=== PATIENT | male | born 1975 | race African-American/Black ===

== ENCOUNTER 2017-05-30 11:58 | Emergency (ER) | payer MEDICAID ==
[~2017-05-30] VITALS: Ht 180.3 cm; Wt 103.4 kg
[2017-05-30] MEDS ORDERED: NKM (12:08)
[2017-05-30 13:29] LABS: BASOPHILS % (AUTO) 1.4 % (0.0-2.0); EOSINOPHILS % (AUTO) 0.7 % (0.0-3.0); LYMPHOCYTES % (AUTO) 27.7 % (20.0-45.0); MEAN CORPUSCULAR HEMOGLOBIN 31.1 PG (27.0-31.0); MEAN CORPUSCULAR HGB CONC 33.7 G/DL (32.0-36.0); MEAN CORPUSCULAR VOLUME 92 FL (80-99); MONOCYTES % (AUTO) 8.7 % (1.0-10.0); NEUTROPHILS % (AUTO) 61.5 % (45.0-75.0); PLATELET COUNT 302 K/UL (150-450); RED CELL DISTRIBUTION WIDTH 11.3 % (11.6-14.8); WHITE BLOOD COUNT 7.6 K/UL (4.8-10.8)
[2017-05-30 13:32] LABS: APPEARANCE,URINE CLEAR; KETONES,URINE 1+ (NEGATIVE); LEUKOCYTE ESTERASE ,URINE 1+ (NEGATIVE); NITRITE,URINE NEGATIVE (NEGATIVE); PH,URINE 6 (4.5-8.0); PROTEIN,URINE NEGATIVE (NEGATIVE); UROBILINOGEN,URINE NORMAL MG/DL (0.0-1.0)
[2017-05-30 13:52] LABS: BACTERIA,URINE OCCASIONAL /HPF; RBC,URINE 0-2 /HPF (0 - 0); SQUAMOUS EPITHELIAL CELL,UR OCCASIONAL /LPF (NONE/OCC)
[2017-05-30 13:53] LABS: ALANINE AMINOTRANSFERASE 39 U/L (3-41); ALBUMIN/GLOBULIN RATIO 1.5 (1.0-2.7); ANION GAP 14 (5-15); ASPARTATE AMINO TRANSFERASE 26 U/L (5-40); CALCIUM 9.9 mg/dL (8.6-10.2); CARBON DIOXIDE 25 mEQ/L (20-30); CHLORIDE 101 mEQ/L (98-107); CREATININE 1.1 mg/dL (0.7-1.2); GLOMERULAR FILTRATION RATE > 60 mL/min (>60); HEMOLYSIS 6; POTASSIUM 4.1 mEQ/L (3.4-4.9); SODIUM 140 mEQ/L (135-145); TOTAL PROTEIN 8.3 g/dL (6.6-8.7)
--- NOTE | 2017-05-30 13:53 | Emergency Room Report ---
History of Present Illness General Chief Complaint: Dizziness Source: Patient Present Illness HPI The patient is a 41 yo M presenting for stated dizziness x 3 days. He went to another ED yesterday for the same complaint but left before any results became available because it took too long. He denies any medical history. he does admit to marijuana and occasional cocaine use. When asked about the dizziness, he states he does not feel like the room or himself is spinning but that he just feels "uncomfortable". He does state he has not been eating or drinking for the past few days for no known reason. He denies N, V, F, chills, cough, SOB , CP, blurred vision Allergies: Coded Allergies: No Known Allergies (Unverified , 05/30/17) Patient History Past Medical History: see triage record Pertinent Family History: none Reviewed Nursing Documentation: PMH: Agreed, PSxH: Agreed Nursing Documentation-PMH Past Medical History: No Stated History Review of Systems All Other Systems: negative except mentioned in HPI Physical Exam Vital Signs Date Time Temp Pulse Resp B/P (MAP) Pulse Ox O2 Delivery O2 Flow Rate FiO2 05/30/17 12:04 98.8 81 16 156/89 98 Room Air Sp02 EP Interpretation: reviewed, normal General Appearance: no apparent distress, alert, GCS 15, non-toxic Head: normocephalic, atraumatic Eyes: bilateral eye normal inspection, bilateral eye PERRL ENT: hearing grossly normal, normal pharynx, no angioedema, normal voice, uvula midline Neck: full range of motion, supple/symm/no masses Respiratory: normal inspection, chest non-tender, no respiratory distress, no accessory muscle use, wheezing - Left upper lobe Cardiovascular #1: regular rate, rhythm, no edema Gastrointestinal: normal bowel sounds, non tender, soft, non-distended, no guarding, no rebound Musculoskeletal: back normal, gait/station normal, normal range of motion, non- tender Neurologic: alert, oriented x3, responsive, motor strength/tone normal, sensory intact, speech normal Psychiatric: judgement/insight normal, memory normal, mood/affect normal, no suicidal/homicidal ideation Skin: normal color, no rash, warm/dry, well hydrated Lymphatic: no adenopathy Medical Decision Making PA Attestation Dr. Moe is my supervising physician. Patient management was discussed with my supervising physician Diagnostic Impression: Primary Impression: Bronchitis Additional Impression: Dizziness of unknown cause ER Course The patient is a 41 YO M presenting for dizziness Differential diagnoses considered but not limited to: Dehydration, anxiety, malnutrition, Benign positional vertigo, positional hypotension, labyrinthitis, Mnire's disease, ACS, among others PE: vitals WNL. NAD HEENT exam is unremarkable RRR No respiratory distress. There is wheezing to the left upper lobe. Skin is warm and dry. Normal turgor EKG and chest x-ray are both unremarkable Blood work unremarkable. Urine drug screen positive for marijuana The patient was given IV fluids and and a sandwich and states that he is feeling much better and has more energy now. The patient will be treated with albuterol and a short course of prednisone for bronchitis. He will continue to take in plenty of fluids at home and increase oral intake. ER precautions given Laboratory Tests Test 05/30/17 13:00 White Blood Count 7.6 K/UL (4.8-10.8) Red Blood Count 5.60 M/UL (4.70-6.10) Hemoglobin 17.4 G/DL (14.2-18.0) Hematocrit 51.6 % (42.0-52.0) Mean Corpuscular Volume 92 FL (80-99) Mean Corpuscular Hemoglobin 31.1 PG (27.0-31.0) H Mean Corpuscular Hemoglobin Concent 33.7 G/DL (32.0-36.0) Red Cell Distribution Width 11.3 % (11.6-14.8) L Platelet Count 302 K/UL (150-450) Mean Platelet Volume 9.0 FL (6.5-10.1) Neutrophils (%) (Auto) 61.5 % (45.0-75.0) Lymphocytes (%) (Auto) 27.7 % (20.0-45.0) Monocytes (%) (Auto) 8.7 % (1.0-10.0) Eosinophils (%) (Auto) 0.7 % (0.0-3.0) Basophils (%) (Auto) 1.4 % (0.0-2.0) Urine Color Pale yellow Urine Appearance Clear Urine pH 6 (4.5-8.0) Urine Specific [place] 1.015 (1.005-1.035) Urine Protein Negative (NEGATIVE) Urine Glucose (UA) Negative (NEGATIVE) Urine Ketones 1+ (NEGATIVE) H Urine Occult Blood Negative (NEGATIVE) Urine Nitrite Negative (NEGATIVE) Urine Bilirubin Negative (NEGATIVE) Urine Urobilinogen Normal MG/DL (0.0-1.0) Urine Leukocyte Esterase 1+ (NEGATIVE) H Urine RBC 0-2 /HPF (0 - 0) H Urine WBC 2-4 /HPF (0 - 0) Urine Squamous Epithelial Cells Occasional /LPF Urine Bacteria Occasional /HPF (NONE) Sodium Level 140 mEQ/L (135-145) Potassium Level 4.1 mEQ/L (3.4-4.9) Chloride Level 101 mEQ/L (98-107) Carbon Dioxide Level 25 mEQ/L (20-30) Anion Gap 14 (5-15) Blood Urea Nitrogen 7 mg/dL (7-23) Creatinine 1.1 mg/dL (0.7-1.2) Estimate Glomerular Filtration Rate > 60 mL/min (>60) Glucose Level 106 mg/dL (74-106) Calcium Level 9.9 mg/dL (8.6-10.2) Total Bilirubin 0.8 mg/dL (0.0-1.2) Aspartate Amino Transferase (AST) 26 U/L (5-40) Alanine Aminotransferase (ALT) 39 U/L (3-41) Alkaline Phosphatase 96 U/L (40-129) Total Creatine Kinase 226 U/L (38-174) H Creatine Kinase MB 2.7 ng/mL (< 6.7) Creatine Kinase MB Relative Index 1.1 Troponin I < 0.30 ng/mL (<=0.30) Total Protein 8.3 g/dL (6.6-8.7) Albumin 5.0 g/dL (3.5-5.2) Globulin 3.3 g/dL Albumin/Globulin Ratio 1.5 (1.0-2.7) Urine Opiates Screen Negative (NEGATIVE) Urine Barbiturates Screen Negative (NEGATIVE) Phencyclidine (PCP) Screen Negative (NEGATIVE) Urine Amphetamines Screen Negative (NEGATIVE) Urine Benzodiazepines Screen Negative (NEGATIVE) Urine Cocaine Screen Negative (NEGATIVE) Urine Marijuana (THC) Screen Positive (NEGATIVE) H Lab Results Impression Unremarkable EKG Diagnostic Results EP Interpretation: NSR Rate: normal - 86 Rhythm: NSR ST Segments: no acute changes ASA given to the pt in ED: No PA Scribe Text EKG was reviewed and read with my supervising physician. No acute ST segment changes are seen. Normal rate and rhythm. No acute changes. Chest X-Ray Diagnostic Results Chest X-Ray Diagnostic Results : Chest X-Ray Ordered: Yes # of Views/Limited/Complete: 1 View Indication: Other - diz EP Interpretation: Yes Interpretation: no consolidation, no effusion, no pneumothorax, no acute cardiopulmonary disease Impression: No acute disease Interpreting ER Provider: MD ELVIE North Scribe Text I am acting as scribe for my supervising physician. My supervising physician's interpretation of the chest xrays are there is no consolidation, no effusion, no acute cardiopulmonary disease, no pneumothorax Last Vital Signs Date Time Temp Pulse Resp B/P (MAP) Pulse Ox O2 Delivery O2 Flow Rate FiO2 05/30/17 12:04 98.8 81 16 156/89 98 Room Air Status: improved Disposition: HOME, SELF-CARE Condition: Improved Scripts Albuterol Sulfate* (PROAIR HFA*) 8.5 Gm Hfa.aer.ad 2 PUFFS INH Q6H, #8.5 GM 0 Refills Prov: ANAYA SWAN P.AChristine 05/30/17 Prednisone* (PREDNISONE*) 20 Mg Tablet 40 MG ORAL DAILY, #8 TAB Prov: ANAYA SWAN P.AChristine 05/30/17 Referrals: NON PHYSICIAN (PCP) ANAYA SWAN May 30, 2017 13:53
[2017-05-30 13:54] LABS: TROPONIN I < 0.30 ng/mL (<=0.30)
[2017-05-30 14:01] VITALS: BP 158/88
[2017-05-30 14:03] LABS: CKMB 2.7 ng/mL (< 6.7)
[2017-05-30] MEDS ORDERED: PROAIR HFA8.5 GM INH (14:16)
[2017-05-30] MEDS ORDERED: PREDNISONE20 MG ORAL (14:16)
[2017-05-30 14:23] VITALS: BP 158/88
--- NOTE | 2017-05-31 09:21 | Diagnostic Imaging Report ---
Indication: Chest pain Technique: One view of the chest Comparison: none Findings: Lungs and pleural spaces are clear. Heart size is normal. Impression: No acute process
--- NOTE | 2017-06-02 16:49 | Cardiology Report ---
APPROVED REPORT EKG Measurement Heart [id number] [id number] Normal sinus rhythm with sinus arrhythmia Possible Left atrial enlargement Borderline ECG
== END 2017-05-30 14:23 | disposition home or self-care (01) ==
LOC: EMR 12:59
DX: J40 Bronchitis, not specified as acute or chronic (principal); R42 Dizziness and giddiness
CPT/HCPCS: 36415; 71010; 80053; 80300; 81003; 82550; 82553; 84484; 85025; 93005; 96360; 99284

== ENCOUNTER 2017-06-01 15:07 | Emergency (ER) | payer MEDICAID ==
[~2017-06-01] VITALS: Ht 177.8 cm; Wt 90.7 kg
[~2017-06-01 15:07] MED LIST: NKM; PREDNISONE20 MG ORAL; PROAIR HFA8.5 GM INH
[2017-06-01 15:57] VITALS: BP 131/79
[2017-06-01 15:58] VITALS: BP 131/79
--- NOTE | 2017-06-01 21:44 | Emergency Room Report ---
History of Present Illness General Chief Complaint: General Complaint Source: Patient Present Illness HPI The patient is a 41-year-old male presenting for feeling anxious. He states that this began 3 days prior. He describes this as overthinking simple tasks, inability to sleep, palpitations. He states that he has not had this happen in the past. He is unsure why this is happening and denies any known stressors. Was seen at another emergency department at the onset of symptoms and given prescription for Ativan which he has not filled. He states that all blood work and testing at that time was unremarkable. He denies any other symptoms Allergies: Coded Allergies: No Known Allergies (Unverified , 05/30/17) Patient History Past Medical History: see triage record Pertinent Family History: none Reviewed Nursing Documentation: PMH: Agreed, PSxH: Agreed Nursing Documentation-PMH Past Medical History: No Stated History Review of Systems All Other Systems: negative except mentioned in HPI Physical Exam Vital Signs Date Time Temp Pulse Resp B/P (MAP) Pulse Ox O2 Delivery O2 Flow Rate FiO2 06/01/17 15:14 98.4 85 20 131/79 100 Room Air Sp02 EP Interpretation: reviewed, normal General Appearance: no apparent distress, alert, GCS 15, non-toxic Head: normocephalic, atraumatic Eyes: bilateral eye normal inspection, bilateral eye PERRL ENT: hearing grossly normal, normal pharynx, no angioedema, normal voice Respiratory: chest non-tender, lungs clear, normal breath sounds, speaking full sentences Cardiovascular #1: regular rate, rhythm, no edema Musculoskeletal: back normal, gait/station normal, normal range of motion, non- tender Neurologic: alert, oriented x3, responsive, motor strength/tone normal, sensory intact, speech normal Psychiatric: anxious Skin: normal color, no rash, warm/dry, well hydrated Lymphatic: no adenopathy Medical Decision Making PA Attestation Dr. Ng is my supervising physician. Patient management was discussed with my supervising physician Diagnostic Impression: Primary Impression: Anxiety ER Course The patient is a 41-year-old male visiting for feelings of anxiety Differential diagnoses considered but not limited to: Anxiety, depression, drug use, among others Physical exam: Patient does appear to be mildly anxious. RRR. Lungs CTA bilat The patient will fill the prescription of Ativan that was prescribed to him by his other physician. Followup with psychiatry. ER precautions are given Last Vital Signs Date Time Temp Pulse Resp B/P (MAP) Pulse Ox O2 Delivery O2 Flow Rate FiO2 06/01/17 15:58 98.4 20 131/79 100 Room Air 06/01/17 15:57 82 Status: improved Disposition: HOME, SELF-CARE Condition: Improved Referrals: [facility] [place] (PCP) Patient Instructions: Panic Attacks Additional Instructions: I discussed my findings with the patient. All questions and concerns have been answered. Treatment and medication compliance have been addressed. I advised the patient that they need to follow up with PMD in 3-5 days. Return to ED if symptoms worsen, new symptoms arise, or if needed for any reason. Patient verbalized understanding of discharge instructions. Please follow up with psychiatry as discussed. ANAYA SWAN Jun 01, 2017 21:44
== END 2017-06-01 16:20 | disposition home or self-care (01) ==
LOC: EMR 15:30
DX: F41.9 Anxiety disorder, unspecified (principal)
CPT/HCPCS: 99283; 99284

== ENCOUNTER 2017-06-15 16:28 | Emergency (ER) | payer MEDICAID ==
[~2017-06-15] VITALS: Ht 180.3 cm; Wt 103.4 kg
--- NOTE | 2017-06-15 17:20 | Emergency Room Report ---
History of Present Illness General Chief Complaint: Dizziness Source: Patient Present Illness HPI Patient presents with an episode of what he felt like was high blood pressure Patient was at home after eating food with hot pepper in it along with a shrimp fried rice He had a sensation of palpitation A flushing sensation to his facial area He checked the symptoms and thought that it was likely in line with high blood pressure And presents for further evaluation Denies any chest pain however he did have some palpitations earlier Denies any vomiting or diarrhea denies any shortness of breath denies any focal weakness Allergies: Coded Allergies: No Known Allergies (Unverified , 05/30/17) Patient History Past Medical History: see triage record Pertinent Family History: none Reviewed Nursing Documentation: PMH: Agreed, PSxH: Agreed Nursing Documentation-PMH Past Medical History: No History, Except For Hx Hypertension: Yes Review of Systems All Other Systems: negative except mentioned in HPI Physical Exam Vital Signs Date Time Temp Pulse Resp B/P (MAP) Pulse Ox O2 Delivery O2 Flow Rate FiO2 06/15/17 16:38 97.3 90 16 115/71 97 Room Air Sp02 EP Interpretation: reviewed, normal General Appearance: well appearing, no apparent distress Head: normocephalic, atraumatic Eyes: bilateral eye PERRL, bilateral eye EOMI ENT: hearing grossly normal, normal pharynx, TMs + canals normal, uvula midline Neck: full range of motion, supple, no meningismus, no bony tend Respiratory: lungs clear, normal breath sounds, no rhonchi, no respiratory distress, no retraction, no accessory muscle use Cardiovascular #1: normal peripheral pulses, regular rate, rhythm, no edema, no gallop, no JVD, no murmur Gastrointestinal: normal bowel sounds, non tender, soft, no mass, no organomegaly, non-distended, no guarding, no hernia, no pulsatile mass, no rebound Genitourinary: no CVA tenderness Musculoskeletal: normal inspection Neurologic: oriented x3, responsive, aoc director combat operations officer III-XII nml as tested, motor strength/ tone normal, sensory intact Psychiatric: mood/affect normal Skin: normal color, no rash, warm/dry, palpation normal Lymphatic: normal inspection, no adenopathy Medical Decision Making Diagnostic Impression: Primary Impression: Dizziness Additional Impression: Palpitations ER Course Patient is a fairly complex patient with multiple differential to consideration including but not limited to cardiac cardiopulmonary and vascular emergencies At this time patient's neurological status is appropriate Negative neurological steady Did not feel the patient met criteria for emergency CAT scan imaging Blood pressure has improved without any intervention Patient refuses blood draw however I do see that he does have blood from 2 weeks ago which were essentially at baseline levels Further discussion with the patient reveals that he feels that nighttimes while trying to go to sleep he will have choking episodes and wake up he has noticed snoring more than usual and we did discuss possible signs of sleep apnea And patient would benefit from close outpatient followup EKG Diagnostic Results Rate: normal Rhythm: NSR ST Segments: other - left atrial enlargement Rhythm Strip Diag. Results EP Interpretation: yes Rate: 66 Rhythm: NSR, no PVC's, no ectopy Last Vital Signs Date Time Temp Pulse Resp B/P (MAP) Pulse Ox O2 Delivery O2 Flow Rate FiO2 06/15/17 16:38 97.3 90 16 115/71 97 Room Air Status: improved Disposition: HOME, SELF-CARE Condition: Improved Referrals: NON PHYSICIAN (PCP) Additional Instructions: Patient is provided with the discharge instructions notified to follow up with primary doctor in the next 2-3 days otherwise return to the er with any worsening symptoms. Please note that this report is being documented using [email or web address] technology. This can lead to erroneous entry secondary to incorrect interpretation by the dictating instrument. SEVERIANO ELI D.O. Jun 15, 2017 17:20
[2017-06-15 17:30] VITALS: BP 136/73
[2017-06-15 18:14] VITALS: BP 136/73
--- NOTE | 2017-06-16 10:37 | Diagnostic Imaging Report ---
Indication: Chest pain Technique: One view of the chest Comparison: 05/30/2017 Findings: The lungs and pleural space are clear. The heart size is normal. There is no significant interim change Impression: Negative
--- NOTE | 2017-06-16 16:33 | Cardiology Report ---
APPROVED REPORT EKG Measurement Heart [id number] Normal sinus rhythm Possible Left atrial enlargement Borderline ECG
== END 2017-06-15 18:14 | disposition home or self-care (01) ==
LOC: EMR 17:08
DX: R42 Dizziness and giddiness (principal); R00.2 Palpitations; I10 Essential (primary) hypertension
CPT/HCPCS: 71010; 82962; 93005; 99283

== ENCOUNTER 2019-11-12 11:13 | Emergency (ER) | payer MEDICAID ==
[~2019-11-12] VITALS: Ht 175.3 cm; Wt 102.5 kg
--- NOTE | 2019-11-12 11:16 | NUR ---
ED Nurse Note: PT. NOT IN THE WAITING ROOM UPON BEING CALLED.PT. WENT TO THE RESTROOM
[2019-11-12 11:25] VITALS: BP 135/72
--- NOTE | 2019-11-12 11:25 | NUR ---
ED Nurse Note: Patient came to ED d/t coughing and congetions x 2 weeks. Patient takes DayQuil at home with no relief. Patient AxO x 4, no s/s of acute distress.
[2019-11-12 12:24] VITALS: BP 130/74
[2019-11-12] MEDS ORDERED: Albuterol ud Inhalation HHN ONE (12:30)
--- NOTE | 2019-11-12 13:03 | Emergency Room Report ---
History of Present Illness General Chief Complaint: Flu Like Symptoms Source: Patient Present Illness HPI 44-year-old Daily marijuana smoker presents to the emergency department complaining of persistent cough x2 weeks with increased mucus production. He denies pain. Patient reports wheezing often at night times after smoking. Patient denies fevers or chills he denies history of asthma or COPD. Patient reports he used to be a cigarette smoker but now only smokes marijuana products. He denies recent travel or ill contacts. No other aggravating or relieving factors at this time. Denies sore throat, ear pain, nasal congestion , rhinorrhea, neck pain/stiffness or headache. Patient denies chest pain or palpitations. Allergies: Coded Allergies: No Known Allergies (Unverified , 05/30/17) Patient History Past Medical History: see triage record Past Surgical History: none Pertinent Family History: none Social History: Reports: smoking Immunizations: UTD Reviewed Nursing Documentation: PMH: Agreed; PSxH: Agreed Nursing Documentation-PMH Hx Hypertension: Yes Review of Systems All Other Systems: negative except mentioned in HPI Physical Exam Vital Signs Date Time Temp Pulse Resp B/P (MAP) Pulse Ox O2 Delivery O2 Flow Rate FiO2 11/12/19 11:18 98.1 60 17 135/72 (93) 97 Room Air 11/12/19 12:40 21 Sp02 EP Interpretation: reviewed, normal General Appearance: no apparent distress, alert, GCS 15, non-toxic Head: normocephalic, atraumatic Eyes: bilateral eye normal inspection, bilateral eye PERRL ENT: hearing grossly normal, normal voice Neck: full range of motion Respiratory: chest non-tender, lungs clear, speaking full sentences, wheezing Cardiovascular #1: regular rate, rhythm, no edema Musculoskeletal: normal range of motion, gait/station normal, non-tender Neurologic: alert, motor strength/tone normal, oriented x3, sensory intact, responsive, speech normal Psychiatric: judgement/insight normal Skin: no rash Lymphatic: no adenopathy Medical Decision Making PA Attestation Dr. Mckeon Is my supervising Physician whom patient management has been discussed with. Diagnostic Impression: Primary Impression: Bronchitis ER Course 44-year-old Daily marijuana smoker presents to the emergency department complaining of persistent cough x2 weeks with increased mucus production. He denies pain. Patient reports wheezing often at night times after smoking. Patient denies fevers or chills he denies history of asthma or COPD. Patient reports he used to be a cigarette smoker but now only smokes marijuana products. He denies recent travel or ill contacts. No other aggravating or relieving factors at this time. Denies sore throat, ear pain, nasal congestion , rhinorrhea, neck pain/stiffness or headache. Patient denies chest pain or palpitations. Ddx considered but are not limited to URI, pneumonia, PE, strep pharyngitis, meningitis. Vital signs: Pt.is afebrile VS are WNL H&PE are most consistent with bronchitis ORDERS: none required at this time, the diagnosis is clinical ED INTERVENTIONS: Nebulized albuterol x1 patient had improvement of his wheezing. DISCHARGE: At this time pt. is stable for d/c to home. Will provide printed patient care instructions, and any necessary prescriptions. Care plan and follow up instructions have been discussed with the patient prior to discharge. Last Vital Signs Date Time Temp Pulse Resp B/P (MAP) Pulse Ox O2 Delivery O2 Flow Rate FiO2 11/12/19 12:43 61 16 Room Air 21 11/12/19 12:40 98 98 11/12/19 11:25 98.1 135/72 Disposition: HOME, SELF-CARE Condition: Stable Scripts No Active Prescriptions or Reported Meds Patient Instructions: Acute Bronchitis, [id number] Additional Instructions: Take medications as directed. Follow up with a Primary Care Provider in 3-5 days, even if your symptoms have resolved. Return sooner to ED if new symptoms occur, or current symptoms become worse. - Please note that this Emergency Department Report was dictated using [employer] supervisor body technology software, occasionally this can lead to erroneous entry secondary to interpretation by the dictation equipment. Violeta Dillon Nov 12, 2019 13:03
[2019-11-12] MEDS ORDERED: MUCINEX1200 MG PO (13:19)
[2019-11-12] MEDS ORDERED: ALBUTEROL SULF8.5 GM INH (13:19)
[2019-11-12] MEDS ORDERED: PROMETHAZINE-D118 ML ORAL (13:19)
--- NOTE | 2019-11-12 13:24 | NUR ---
ER DISCHARGE NOTE: Patient cleared for DC by Violeta BERMEO. Verbalized understanding of DC instructions. ID band removed, patient walks with steady gait. All belongings taken by patient.
== END 2019-11-12 13:24 | disposition home or self-care (01) ==
LOC: EMR 13:15
DX: J20.9 Acute bronchitis, unspecified (principal); F17.200 Nicotine dependence, unspecified, uncomplicated; I10 Essential (primary) hypertension
CPT/HCPCS: 99284

== ENCOUNTER 2020-12-15 13:47 | Emergency (ER) | payer MEDICAID, OTHER ==
[~2020-12-15] VITALS: Ht 182.9 cm; Wt 99.8 kg
[~2020-12-15 13:47] MED LIST changes: +ALBUTEROL SULF8.5 GM INH; +MUCINEX1200 MG PO; +PROMETHAZINE-D118 ML ORAL
--- NOTE | 2020-12-15 14:34 | NUR ---
pt arrives to ER with complaints of rectal pain. pt states history of hemorrhoids over 2 weeks. pt states using prep H without relief.
[2020-12-15] MEDS ORDERED: ANUSOL-HC30 GM RC (14:44)
[2020-12-15] MEDS ORDERED: LD2JL30 TOPIC (14:44)
[2020-12-15] MEDS ORDERED: sitz bath (14:44)
[2020-12-15] MEDS ORDERED: DOCUSATE SODIU100 MG ORAL (14:46)
--- NOTE | 2020-12-15 14:49 | Emergency Room Report ---
History of Present Illness General Chief Complaint: General Complaint Source: Patient Present Illness HPI Disclaimer: Please note that this report is being documented using [employer] technology. This can lead to erroneous entry secondary to incorrect interpretation by the dictating instrument. HPI: 45-year-old male presents with anal pain. He states he has been suffering from hemorrhoids for over a week. He noticed bright red bleeding on tissue paper 3 days ago but this is now stopped. Reports persistent pain after running out of Preparation H. Also complaining of hard stools. Continues to have bowel movements. Denies belly pain or distention. Denies fever or chills. Denies any bleeding or purulent drainage from the rectum. PMH: Reviewed PSH: Reviewed Allergies: Reviewed Social Hx: Reviewed Allergies: Coded Allergies: No Known Allergies (Unverified , 05/30/17) COVID-19 Screening Contact w/high risk pt: No Experienced COVID-19 symptoms?: No COVID-19 Testing performed BUSINESS SYSTEMS LEAD: No COVID-19 Screening: Negative COVID-19 Nursing Documentation-PMH Hx Hypertension: Yes Hx Asthma: Yes Review of Systems All Other Systems: negative except mentioned in HPI Physical Exam Vital Signs Date Time Temp Pulse Resp B/P (MAP) Pulse Ox O2 Delivery O2 Flow Rate FiO2 12/15/20 14:20 99.0 78 18 100 Room Air General: Awake and alert, no acute distress HEENT: NC/AT. EOMI. Resp: Normal work of breathing Abdomen: Soft, nontender, nondistended Rectal: Small nonthrombosed external hemorrhoid. No bleeding. Patient declined rectal exam. Cannot evaluate for internal hemorrhoid or other mass. Skin: Intact. No abrasions, laceration or rash over the exposed skin MSK: Normal tone and bulk. Moving all extremities. No obvious deformity. Neuro: Awake and alert. Mentating appropriately Medical Decision Making Diagnostic Impression: Primary Impression: External hemorrhoid ER Course 45-year-old male presents with rectal pain. Small nonthrombosed external hemorrhoid found though patient declined digital rectal exam so cannot evaluate for internal hemorrhoid or mass. No anal fissure appreciated. No signs of exte rnal infection. Will start on symptomatic medications including docusate sitz bath, lidocaine and Anusol ointment. Instructed to return with new or worsening symptoms and to follow-up with PMD. He understands and agrees with this treatment plan. Last Vital Signs Date Time Temp Pulse Resp B/P (MAP) Pulse Ox O2 Delivery O2 Flow Rate FiO2 12/15/20 14:24 99.0 18 100 Room Air 12/15/20 14:20 78 Disposition: HOME, SELF-CARE Condition: Stable Scripts Docusate Sodium* (DOCUSATE SODIUM*) 100 Mg Capsule 100 MG ORAL THREE TIMES A DAY, #30 CAP Prov: Dain Rainey MD 12/15/20 Lidocaine HCL 2% Jelly* (Lidocaine Jelly 2%*) 5 Ml Jel.pf.claire 5 ML TOPIC DAILY for 7 Days, #50 ML Prov: Dain Rainey MD 12/15/20 Hydrocortisone Hc 2.5% Cream (ANUSOL-HC 2.5% CREAM) Y Cr 30 GM RC TID, #30 GM Prov: Dain Rainey MD 12/15/20 [sitz bath] No Conflict Check 1 KIT Prov: Dain Rainey MD 12/15/20 Referrals: [facility] Patient Instructions: Disposable Sitz Bath, Hemorrhoids Additional Instructions: Please follow-up with your primary care doctor in the next 1 to 3 days to discuss this emergency department visit and for reevaluation. If you have any new or worsening symptoms please return to the emergency department for reevaluation. Please note that this report is being documented using [employer] technology. This can lead to erroneous entry secondary to incorrect interpretation by the dictating instrument. Dain Rainey MD Dec 15, 2020 14:49
== END 2020-12-15 15:03 | disposition home or self-care (01) ==
LOC: EMR 14:45
DX: K64.4 Residual hemorrhoidal skin tags (principal); I10 Essential (primary) hypertension
CPT/HCPCS: 99282